=== PATIENT | female | born 1950 | race African-American/Black ===

== ENCOUNTER 2018-10-03 09:35 | Emergency (ER) | payer MEDICARE, OTHER ==
[~2018-10-03] VITALS: Ht 170.2 cm; Wt 63.6 kg
[~2018-10-03 09:35] MED LIST: ALBU8HFA IH; AUD NEB; DILT30TA38 PO; LEVE1000 PO; LISI-662 PO; MOME13HF IH; MONT10TA24 PO; OMEP20 PO; PRED5 PO; SENN-176 PO
[2018-10-03 10:39] LABS: BASOPHILS % (AUTO) 0.6 % (0.0-2.0); EOSINOPHILS % (AUTO) 0.6 % (1.0-6.0); HEMATOCRIT 44.3 % (36-46); LYMPHOCYTES # (AUTO) 3.4 K/uL (1.0-4.8); LYMPHOCYTES % (AUTO) 26.2 % (22.0-44.0); MEAN CORPUSCULAR HEMOGLOBIN 22.5 pg (26.0-34.0); MEAN CORPUSCULAR HGB CONC 31.7 G/dL (31.0-37.0); MEAN CORPUSCULAR VOLUME 71 fL (80-100); MONOCYTES # (AUTO) 0.9 K/uL (0.1-1.0); MONOCYTES % (AUTO) 6.9 % (2.0-9.0); NEUTROPHILS # (AUTO) 8.6 K/uL (1.8-7.7); NEUTROPHILS % (AUTO) 65.7 % (40.0-70.0); PLATELET COUNT (AUTO) 280 K/uL (150-450); RED BLOOD CELL COUNT(AUTO) 6.23 MIL/uL (4.00-5.20); RED CELL DISTRIBUTION WIDTH 15.5 % (11.5-14.5)
[2018-10-03 10:50] LABS: ANION GAP 16 mmol/L (8-16); CALCIUM, TOTAL 9.8 mg/dL (8.8-10.5); CARBON DIOXIDE 19 mmol/L (22-29); CHLORIDE 103 mmol/L (98-107); CREATININE 1.12 mg/dL (0.60-1.30); GLOMERULAR FILTR. RATE CALC 59 mL/min (>60); GLUCOSE,RANDOM 113 mg/dL (70-110); SODIUM SERUM 138 mmol/L (136-145); UREA NITROGEN, BLOOD 17 mg/dL (7-18)
[2018-10-03 10:55] LABS: ALANINE AMINOTRANSFERASE 16 U/L (12-78); ALBUMIN 3.6 g/dL (3.4-5.0); ALKALINE PHOSPHATASE 98 U/L (46-116); ASPARTATE AMINOTRANSFERASE 15 U/L (15-37); BILIRUBIN,TOTAL 0.3 mg/dL (0.1-1.0); TOTAL PROTEIN, SERUM 7.7 g/dL (6.4-8.2)
[2018-10-03] MEDS ORDERED: DIAZEPAM 2 MG TABLET PO ONE (12:15)
[2018-10-03] MEDS ORDERED: SODIUM CHLORIDE 0.9% 1,000 ML IV ONE (12:15)
[2018-10-03] MEDS ORDERED: LevETIRAcetam 1,000 MG in DEXTROSE 5%-WATER 100 ML IV ONE (12:15)
[2018-10-03 14:00] VITALS: BP 130/88
== END 2018-10-03 14:45 | disposition home or self-care (01) ==
LOC: EMS 09:35
DX: G40.909 Epilepsy, unspecified, not intractable, without status epilepticus (principal); R25.2 Cramp and spasm; I10 Essential (primary) hypertension; F17.210 Nicotine dependence, cigarettes, uncomplicated; J44.9 Chronic obstructive pulmonary disease, unspecified; F32.9 Major depressive disorder, single episode, unspecified; Z85.118 Personal history of other malignant neoplasm of bronchus and lung; Z88.1 Allergy status to other antibiotic agents; Z79.899 Other long term (current) drug therapy
CPT/HCPCS: 36415; 80053; 85025; 96365; 99283; 99406; G0480; J0712; J7030; J7060

== ENCOUNTER 2019-07-02 11:47 | Emergency (ER) | payer MEDICARE, OTHER ==
[~2019-07-02] VITALS: Ht 157.5 cm; Wt 68.2 kg
[~2019-07-02 11:47] MED LIST changes: -AUD NEB; -MONT10TA24 PO; +MONT10TA26 PO; -PRED5 PO
[2019-07-02 11:49] VITALS: BP 164/86
== END 2019-07-02 12:40 | disposition home or self-care (01) ==
LOC: EMS 11:54
DX: I10 Essential (primary) hypertension (principal); J44.9 Chronic obstructive pulmonary disease, unspecified; K21.9 Gastro-esophageal reflux disease without esophagitis; F32.9 Major depressive disorder, single episode, unspecified; F17.210 Nicotine dependence, cigarettes, uncomplicated; Z85.118 Personal history of other malignant neoplasm of bronchus and lung; Z79.899 Other long term (current) drug therapy; Z88.1 Allergy status to other antibiotic agents; Z88.8 Allergy status to other drugs, medicaments and biological substances
CPT/HCPCS: 93005

== ENCOUNTER 2020-03-13 15:32 | Emergency (ER) | payer MEDICARE, OTHER ==
[~2020-03-13] VITALS: Ht 170.2 cm; Wt 67.7 kg
[~2020-03-13 15:32] MED LIST changes: -SENN-176 PO; +SENN-277 PO
[2020-03-13 15:34] VITALS: BP 145/87
[2020-03-13] MEDS ORDERED: MULT-1259 PO (15:51)
[2020-03-13] MEDS ORDERED: DIPH25 PO (15:51)
[2020-03-13 17:30] LABS: APPEARANCE,URINE CLOUDY (CLEAR); BILIRUBIN,URINE NEGATIVE (NEGATIVE); GLUCOSE, URINE (UA) NEGATIVE (NEGATIVE); KETONES,URINE NEGATIVE (NEGATIVE); LEUKOCYTE ESTERASE ,URINE SMALL (NEGATIVE); NITRATE,URINE NEGATIVE (NEGATIVE); OCCULT BLOOD,URINE NEGATIVE (NEGATIVE); PH,URINE 6.5 (5.0-8.0); PROTEIN,URINE NEGATIVE (NEGATIVE); UROBILINOGEN,URINE 0.2 mg/dL (<=1.0)
[2020-03-13 17:39] LABS: BACTERIA,URINE None Seen /HPF (None Seen); RBC,URINE None Seen /HPF (0-2)
== END 2020-03-13 17:02 | disposition home or self-care (01) ==
LOC: EMS 15:33
DX: N39.0 Urinary tract infection, site not specified (principal)

== ENCOUNTER 2020-11-18 14:51 | Emergency (ER) | payer MEDICARE, OTHER ==
[~2020-11-18] VITALS: Ht 170.2 cm; Wt 72.0 kg
[~2020-11-18 14:51] MED LIST changes: +DIPH25 PO; -LISI-662 PO; +LISI-894 PO; -MONT10TA26 PO; +MULT-1259 PO
[2020-11-18 15:53] LABS: BILIRUBIN,URINE NEGATIVE (NEGATIVE); GLUCOSE, URINE (UA) NEGATIVE (NEGATIVE); KETONES,URINE NEGATIVE (NEGATIVE); LEUKOCYTE ESTERASE ,URINE LARGE (NEGATIVE); NITRATE,URINE NEGATIVE (NEGATIVE); OCCULT BLOOD,URINE SMALL (NEGATIVE); PH,URINE 6.5 (5.0-8.0); PROTEIN,URINE NEGATIVE (NEGATIVE); UROBILINOGEN,URINE 0.2 mg/dL (<=1.0)
[2020-11-18 16:01] LABS: APPEARANCE,URINE HAZY (CLEAR)
[2020-11-18 16:04] LABS: WBC,URINE 26-50 /HPF (0-5)
[2020-11-18 16:05] LABS: BACTERIA,URINE Moderate /HPF (None Seen); SQUAMOUS EPITHELIAL CELL,UR Rare /LPF (None Seen)
[2020-11-18 16:15] VITALS: BP 139/89
== END 2020-11-18 16:35 | disposition home or self-care (01) ==
LOC: EMS 14:57
DX: N39.0 Urinary tract infection, site not specified (principal); J44.9 Chronic obstructive pulmonary disease, unspecified; F32.9 Major depressive disorder, single episode, unspecified; K21.9 Gastro-esophageal reflux disease without esophagitis; I10 Essential (primary) hypertension; F17.210 Nicotine dependence, cigarettes, uncomplicated; Z88.1 Allergy status to other antibiotic agents
CPT/HCPCS: 81001; 87077; 87086; 87186; 99283

== ENCOUNTER 2020-12-25 05:47 | Emergency (ER) | payer MEDICARE, OTHER ==
[~2020-12-25] VITALS: Ht 167.6 cm; Wt 72.7 kg
[2020-12-25 06:40] LABS: BASOPHILS % (AUTO) 0.2 % (0.0-2.0); EOSINOPHILS % (AUTO) 1.1 % (1.0-6.0); HEMATOCRIT 39.7 % (36-46); HEMOGLOBIN 12.7 g/dL (12.0-16.0); LYMPHOCYTES # (AUTO) 2.4 K/uL (1.0-4.8); LYMPHOCYTES % (AUTO) 26.8 % (22.0-44.0); MEAN CORPUSCULAR HEMOGLOBIN 22.9 pg (26.0-34.0); MEAN CORPUSCULAR VOLUME 72 fL (80-100); MONOCYTES # (AUTO) 0.6 K/uL (0.1-1.0); MONOCYTES % (AUTO) 7.2 % (2.0-9.0); NEUTROPHILS # (AUTO) 5.8 K/uL (1.8-7.7); NEUTROPHILS % (AUTO) 64.7 % (40.0-70.0); PLATELET COUNT (AUTO) 150 K/uL (150-450); RED BLOOD CELL COUNT(AUTO) 5.54 MIL/uL (4.00-5.20); RED CELL DISTRIBUTION WIDTH 16.1 % (11.5-14.5)
[2020-12-25 06:45] LABS: ANION GAP 10 mmol/L (8-16); CALCIUM, TOTAL 9.4 mg/dL (8.8-10.5); CARBON DIOXIDE 24 mmol/L (22-29); CHLORIDE 105 mmol/L (98-107); CREATININE 0.91 mg/dL (0.60-1.30); GLOMERULAR FILTR. RATE CALC > 60 mL/min (>60); GLUCOSE,RANDOM 104 mg/dL (70-110); POTASSIUM 3.8 mmol/L (3.5-5.1); SODIUM SERUM 139 mmol/L (136-145); UREA NITROGEN, BLOOD 7 mg/dL (7-18)
[2020-12-25 06:50] LABS: COVID AG,FIA SOURCE NASOPHARYNGEAL
[2020-12-25 06:51] LABS: ALANINE AMINOTRANSFERASE 28 U/L (12-78); ALBUMIN 3.6 g/dL (3.4-5.0); ALKALINE PHOSPHATASE 116 U/L (46-116); ASPARTATE AMINOTRANSFERASE 17 U/L (15-37); BILIRUBIN,TOTAL 0.3 mg/dL (0.1-1.0); TOTAL PROTEIN, SERUM 7.4 g/dL (6.4-8.2)
[2020-12-25] MEDS ORDERED: PSEU-220 PO (07:03)
[2020-12-25] MEDS ORDERED: FOLI-74 PO (07:03)
[2020-12-25] MEDS ORDERED: LISI-893 PO (07:03)
[2020-12-25] MEDS ORDERED: MONT-35 PO (07:03)
[2020-12-25] MEDS ORDERED: FAMO20 PO (07:03)
[2020-12-25] MEDS ORDERED: OSIM80TA PO (07:05)
[2020-12-25] MEDS ORDERED: AMOX1TAB16 PO (07:05)
[2020-12-25] MEDS ORDERED: LevETIRAcetam 500 MG TABLET PO ONE (08:30)
[2020-12-25] MEDS ORDERED: ACETAMINOPHEN 500 MG TABLET PO ONE (09:00)
[2020-12-25 09:02] VITALS: BP 140/68
== END 2020-12-25 10:05 | disposition home or self-care (01) ==
LOC: EMS 05:49
DX: G40.909 Epilepsy, unspecified, not intractable, without status epilepticus (principal); C34.91 Malignant neoplasm of unspecified part of right bronchus or lung; J44.9 Chronic obstructive pulmonary disease, unspecified; F32.9 Major depressive disorder, single episode, unspecified; K21.9 Gastro-esophageal reflux disease without esophagitis; I10 Essential (primary) hypertension; F17.210 Nicotine dependence, cigarettes, uncomplicated; Z20.822 Contact with and (suspected) exposure to COVID-19; Z88.5 Allergy status to narcotic agent; Z79.899 Other long term (current) drug therapy
CPT/HCPCS: 71045; 80053; 85025; 99284; 99285; 36415-L1; 36415-TC

== ENCOUNTER 2021-03-01 16:33 | Emergency (ER) | payer MEDICARE, OTHER ==
[~2021-03-01] VITALS: Ht 170.2 cm; Wt 63.6 kg
[~2021-03-01 16:33] MED LIST changes: +AMOX1TAB16 PO; +FAMO20 PO; +FOLI-74 PO; +LISI-893 PO; -LISI-894 PO; +MONT-35 PO; +OSIM80TA PO; +PSEU-220 PO
[2021-03-01 17:37] LABS: APPEARANCE,URINE RPT (CLEAR); BILIRUBIN,URINE NEGATIVE (NEGATIVE); GLUCOSE, URINE (UA) NEGATIVE (NEGATIVE); KETONES,URINE NEGATIVE (NEGATIVE); LEUKOCYTE ESTERASE ,URINE LARGE (NEGATIVE); NITRATE,URINE POSITIVE (NEGATIVE); OCCULT BLOOD,URINE TRACE (NEGATIVE); PROTEIN,URINE NEGATIVE (NEGATIVE); UROBILINOGEN,URINE 0.2 mg/dL (<=1.0)
[2021-03-01 17:47] LABS: SQUAMOUS EPITHELIAL CELL,UR Rare /LPF (None Seen)
[2021-03-01 17:49] LABS: BACTERIA,URINE Moderate /HPF (None Seen); RBC,URINE 0-2 /HPF (0-2)
[2021-03-01 17:50] LABS: WBC,URINE 51-100 /HPF (0-5)
[2021-03-01 18:25] VITALS: BP 123/87
== END 2021-03-01 18:26 | disposition home or self-care (01) ==
LOC: EMS 16:38
DX: N39.0 Urinary tract infection, site not specified (principal); I10 Essential (primary) hypertension; J44.9 Chronic obstructive pulmonary disease, unspecified; K21.9 Gastro-esophageal reflux disease without esophagitis; F32.9 Major depressive disorder, single episode, unspecified; F17.210 Nicotine dependence, cigarettes, uncomplicated; Z88.1 Allergy status to other antibiotic agents; Z79.899 Other long term (current) drug therapy
CPT/HCPCS: 81001; 87077; 87086; 87186; 99283

== ENCOUNTER 2021-03-18 16:16 | Emergency (ER) | payer MEDICARE, OTHER ==
[~2021-03-18] VITALS: Ht 170.2 cm; Wt 70.0 kg
[2021-03-18 17:04] VITALS: BP 136/76
[2021-03-18 18:06] LABS: BASOPHILS % (AUTO) 0.4 % (0.0-2.0); EOSINOPHILS % (AUTO) 0.7 % (1.0-6.0); HEMATOCRIT 41.3 % (36-46); HEMOGLOBIN 13.1 g/dL (12.0-16.0); LYMPHOCYTES % (AUTO) 25.8 % (22.0-44.0); MEAN CORPUSCULAR HEMOGLOBIN 22.7 pg (26.0-34.0); MEAN CORPUSCULAR HGB CONC 31.8 G/dL (31.0-37.0); MEAN CORPUSCULAR VOLUME 71 fL (80-100); MONOCYTES # (AUTO) 0.5 K/uL (0.1-1.0); MONOCYTES % (AUTO) 6.2 % (2.0-9.0); NEUTROPHILS # (AUTO) 5.1 K/uL (1.8-7.7); NEUTROPHILS % (AUTO) 66.9 % (40.0-70.0); PLATELET COUNT (AUTO) 151 K/uL (150-450); RED CELL DISTRIBUTION WIDTH 15.2 % (11.5-14.5)
[2021-03-18 18:24] LABS: ANION GAP 8 mmol/L (8-16); CALCIUM, TOTAL 9.3 mg/dL (8.8-10.5); CARBON DIOXIDE 27 mmol/L (22-29); CHLORIDE 102 mmol/L (98-107); CREATININE 0.92 mg/dL (0.60-1.30); GLOMERULAR FILTR. RATE CALC > 60 mL/min (>60); GLUCOSE,RANDOM 99 mg/dL (70-110); POTASSIUM 3.8 mmol/L (3.5-5.1); SODIUM SERUM 137 mmol/L (136-145); UREA NITROGEN, BLOOD 12 mg/dL (7-18)
[2021-03-18 18:30] LABS: ALANINE AMINOTRANSFERASE 51 U/L (12-78); ALKALINE PHOSPHATASE 123 U/L (46-116); ASPARTATE AMINOTRANSFERASE 21 U/L (15-37); BILIRUBIN,TOTAL 0.3 mg/dL (0.1-1.0)
[2021-03-18 19:45] LABS: APPEARANCE,URINE CLOUDY (CLEAR); BILIRUBIN,URINE NEGATIVE (NEGATIVE); GLUCOSE, URINE (UA) NEGATIVE (NEGATIVE); KETONES,URINE NEGATIVE (NEGATIVE); LEUKOCYTE ESTERASE ,URINE LARGE (NEGATIVE); NITRATE,URINE POSITIVE (NEGATIVE); OCCULT BLOOD,URINE SMALL (NEGATIVE); PROTEIN,URINE NEGATIVE (NEGATIVE); UROBILINOGEN,URINE 0.2 mg/dL (<=1.0)
[2021-03-18 20:09] LABS: SQUAMOUS EPITHELIAL CELL,UR Few /LPF (None Seen)
[2021-03-18 20:10] LABS: BACTERIA,URINE Many /HPF (None Seen); WBC,URINE 51-100 /HPF (0-5)
[2021-03-18 20:11] LABS: RBC,URINE 0-2 /HPF (0-2)
== END 2021-03-18 21:14 | disposition home or self-care (01) ==
LOC: EMS 16:18
DX: N89.8 Other specified noninflammatory disorders of vagina (principal); R30.0 Dysuria; F17.210 Nicotine dependence, cigarettes, uncomplicated; F32.9 Major depressive disorder, single episode, unspecified; I10 Essential (primary) hypertension; Z88.1 Allergy status to other antibiotic agents; Z79.899 Other long term (current) drug therapy
CPT/HCPCS: 80053; 81001; 85025; 87077; 87086; 87186; 99283

== ENCOUNTER 2021-03-26 12:48 | Emergency (ER) | payer MEDICARE, OTHER ==
[~2021-03-26] VITALS: Ht 170.2 cm; Wt 63.6 kg
[2021-03-26 15:31] LABS: APPEARANCE,URINE TURBID (CLEAR); BILIRUBIN,URINE NEGATIVE (NEGATIVE); GLUCOSE, URINE (UA) NEGATIVE (NEGATIVE); KETONES,URINE NEGATIVE (NEGATIVE); LEUKOCYTE ESTERASE ,URINE LARGE (NEGATIVE); OCCULT BLOOD,URINE SMALL (NEGATIVE); PROTEIN,URINE NEGATIVE (NEGATIVE); UROBILINOGEN,URINE 0.2 mg/dL (<=1.0)
[2021-03-26 15:35] LABS: BACTERIA,URINE Many /HPF (None Seen); NITRATE,URINE POSITIVE (NEGATIVE); SQUAMOUS EPITHELIAL CELL,UR Few /LPF (None Seen); WBC,URINE >100 /HPF (0-5)
[2021-03-26 15:39] VITALS: BP 129/67
== END 2021-03-26 15:42 | disposition home or self-care (01) ==
LOC: EMS 12:48
DX: N12 Tubulo-interstitial nephritis, not specified as acute or chronic (principal); J44.9 Chronic obstructive pulmonary disease, unspecified; F32.9 Major depressive disorder, single episode, unspecified; K21.9 Gastro-esophageal reflux disease without esophagitis; I10 Essential (primary) hypertension; F17.210 Nicotine dependence, cigarettes, uncomplicated; Z88.1 Allergy status to other antibiotic agents; Z79.899 Other long term (current) drug therapy
CPT/HCPCS: 81001; 87077; 87086; 99283

== ENCOUNTER 2022-10-20 07:07 | Day surgery (SDC) | payer MEDICARE, OTHER ==
[~2022-10-20 07:07] MED LIST changes: +ALBU18HF12 IH; -ALBU8HFA IH; -AMOX1TAB16 PO; -DILT30TA38 PO; +DIPH-1243 PO; -DIPH25 PO; -FOLI-74 PO; -MOME13HF IH; +MOME13HF11 IH; -MULT-1259 PO; -OMEP20 PO; -PSEU-220 PO; -SENN-277 PO; +SODIUM CHLORIDE 0.9% 1,000 ML IV ONE
[2022-10-20] MEDS ORDERED: SODIUM CHLORIDE 0.9% 1,000 ML ONE (07:16)
[2022-10-20] MEDS ORDERED: FAMO20 PO (07:31)
[2022-10-20] MEDS ORDERED: FentaNYL CITRATE PF 100 MCG/2 ML VIAL ONE (08:20)
[2022-10-20] MEDS ORDERED: MIDAZOLAM HCL 2 MG/2 ML VIAL ONE (08:21)
[2022-10-20] MEDS ORDERED: MethylPREDNISolone SOD SUCC 125 MG/2 ML VIAL ONE ×2 (09:19→09:50)
[2022-10-20] MEDS ORDERED: MethylPREDNISolone SOD SUCC 125 MG/2 ML VIAL IVP ONE (10:00)
[2022-10-20] MEDS ORDERED: ALBUTEROL SULFATE 2.5 MG/0.5 ML NEB SOLUTION NEB ONE (12:00)
[2022-10-20] MEDS ORDERED: LIDOCAINE 4% 50 ML SOLUTION TP ONE (12:00)
[2022-10-20] MEDS ORDERED: LIDOCAINE 2% 11 ML JELLY TP ONE (12:00)
[2022-10-20] MEDS ORDERED: BENZOCAINE 20% 50 MCG/SPRAY 57 GM TP ONE (12:00)
== END 2022-10-20 11:40 | disposition home or self-care (01) ==
LOC: SURGERY 07:07
PROVIDERS: ATTEND Internal Medicine Critical Care Medicine
DX: J38.4 Edema of larynx (principal); B37.0 Candidal stomatitis; J44.9 Chronic obstructive pulmonary disease, unspecified; Z98.890 Other specified postprocedural states; Z88.1 Allergy status to other antibiotic agents
CPT/HCPCS: 31623; 88112; 87206; 87101; 87220; 87070; 31624; 94640; 71045; 87015; J3010; J2250; J2930; Q9967; J7030; J7613; Z7610

== ENCOUNTER 2023-04-27 15:30 | Emergency (ER) | payer MEDICARE, OTHER ==
[~2023-04-27] VITALS: Ht 170.2 cm; Wt 59.1 kg
[~2023-04-27 15:30] MED LIST changes: -SODIUM CHLORIDE 0.9% 1,000 ML IV ONE
[2023-04-27] MEDS ORDERED: LISI-893 PO (15:37)
[2023-04-27] MEDS ORDERED: DILT60SR PO (15:37)
[2023-04-27] MEDS ORDERED: KETOROLAC TROMETHAMINE 30 MG/ML VIAL IM ONE (17:00)
[2023-04-27] MEDS ORDERED: DOXYCYCLINE HYCLATE 100 MG TABLET PO ONE (18:30)
[2023-04-27] MEDS ORDERED: DOXY-354 PO (19:37)
[2023-04-27] MEDS ORDERED: IBUP-1492 PO (19:37)
[2023-04-27] MEDS ORDERED: ACET-3385 PO (19:37)
[2023-04-27 19:57] VITALS: BP 135/89; PULSE 89; RESP 16; TEMP 97.3
== END 2023-04-27 19:00 | disposition home or self-care (01) ==
LOC: EMS 15:36
DX: L03.032 Cellulitis of left toe (principal); J44.9 Chronic obstructive pulmonary disease, unspecified; F32.A Depression, unspecified; I10 Essential (primary) hypertension; F17.210 Nicotine dependence, cigarettes, uncomplicated; Z98.890 Other specified postprocedural states; Z88.8 Allergy status to other drugs, medicaments and biological substances
CPT/HCPCS: 99283; 73660; 96372; J1885

== ENCOUNTER 2024-01-07 23:33 | Emergency (ER) | payer MEDICARE, OTHER ==
[~2024-01-07 23:33] MED LIST changes: +ACET-3385 PO; +DILT60SR PO; +DOXY-354 PO; +IBUP-1492 PO
[2024-01-08 01:16] LABS: APPEARANCE,URINE HAZY (CLEAR); BILIRUBIN,URINE NEGATIVE (NEGATIVE); COLOR,URINE YELLOW (YELLOW); GLUCOSE, URINE (UA) NEGATIVE (NEGATIVE); KETONES,URINE NEGATIVE (NEGATIVE); LEUKOCYTE ESTERASE ,URINE LARGE (NEGATIVE); NITRATE,URINE POSITIVE (NEGATIVE); OCCULT BLOOD,URINE SMALL (NEGATIVE); PH,URINE 5.5 (5.0-8.0); PROTEIN,URINE TRACE mg/dL (NEGATIVE); SPECIFIC GRAVITIY, URINE 1.022 (1.003-1.030); UROBILINOGEN,URINE <=1.0 mg/dL (<=1.0)
[2024-01-08 01:50] LABS: WBC,URINE 51-100 /HPF (0-5)
[2024-01-08 01:51] LABS: BACTERIA,URINE Many /HPF (None Seen); SQUAMOUS EPITHELIAL CELL,UR Few /LPF (None Seen)
[2024-01-08] MEDS ORDERED: CEPH-558 PO (01:57)
[2024-01-08] MEDS: CefTRIAXone SODIUM 1 GM/VIAL IM ONE (02:11)
[2024-01-08] MEDS: LIDOCAINE/PF 1% 2 ML VIAL IM ONE (02:11)
[2024-01-08] MEDS ORDERED: CefTRIAXone 1 GM/DEXTROSE 50 ML IV ONE (02:15)
[2024-01-08] MEDS ORDERED: CefTRIAXone SODIUM 1 GM/VIAL ONE (02:22)
[2024-01-08] MEDS ORDERED: LIDOCAINE/PF 1% 2 ML VIAL ONE (02:22)
[2024-01-08] MEDS ORDERED: LIDOCAINE/PF 1% 2 ML VIAL IM ONE (02:45)
[2024-01-08] MEDS ORDERED: CefTRIAXone SODIUM 1 GM/VIAL IM ONE (02:45)
== END 2024-01-08 02:42 | disposition home or self-care (01) ==
LOC: EMS 23:34
DX: N39.0 Urinary tract infection, site not specified (principal); R30.0 Dysuria; R35.0 Frequency of micturition; J44.9 Chronic obstructive pulmonary disease, unspecified; K21.9 Gastro-esophageal reflux disease without esophagitis; I10 Essential (primary) hypertension; F17.210 Nicotine dependence, cigarettes, uncomplicated; Z88.1 Allergy status to other antibiotic agents
CPT/HCPCS: 99283; 81001; 87086; 87186; J0696; J3490

== ENCOUNTER 2024-03-08 22:29 | Inpatient (IN) | payer MEDICARE, OTHER ==
[~2024-03-08] VITALS: Ht 170.2 cm; Wt 56.2 kg
[~2024-03-08 22:29] MED LIST changes: -ACET-3385 PO; +APIX5TAB PO; +BRIM5DRO9 OU; -DILT60SR PO; -DIPH-1243 PO; +DORZ1DRO12 OU; -DOXY-354 PO; -FAMO20 PO; -IBUP-1492 PO; -MOME13HF11 IH; -MONT-35 PO; +TRIP1TAB14 PO; +VERA120T21 PO; +[UNRECOGNIZED DRUG - CODE] PO
[2024-03-08 22:30] VITALS: PULSE 142; RESP 37; O2SAT 100
[2024-03-08] MEDS ORDERED: ALBUTEROL SULFATE 2.5 MG/0.5 ML 5 ML NEB SOLUTION NEB ONE (22:45)
[2024-03-08] MEDS ORDERED: 0.9% SODIUM CHLORIDE 10 ML SYRINGE IVP PRN (22:45)
[2024-03-08] MEDS ORDERED: IPRATROPIUM BROMIDE 0.5 MG/2.5 ML NEB SOLUTION NEB ONE (22:45)
[2024-03-08] MEDS: MethylPREDNISolone SOD SUCC 125 MG/2 ML VIAL IVP ONE (22:51)
[2024-03-08 22:53] LABS: ABG BASE EXCESS -6.3 mmol/L (-2.0-3.0); ABG HCO3 19.2 mmol/L (21.0-28.0); ABG METHEMOGLOBIN 0.1 % (0.0-1.5); ABG OXYGEN CONTENT 18.2 mL/dL (15.0-23.0); ABG OXYGEN SATURATION 98.6 % (94.0-98.0); ABG OXYHEMOGLOBIN 96.5 % (94.0-98.0); ABG PCO2 49 mmHg (32.0-45.0); ABG TOTAL HEMOGLOBIN 13.2 G/dL (12.0-16.0); SOURCE, BLOOD GAS ARTERIAL; TEMPERATURE, FAHRENHEIT, BG 98.1 FAHREN (96.0-98.6)
[2024-03-08 22:55] LABS: EOSINOPHILS % (AUTO) 1.4 % (1.0-6.0); HEMATOCRIT 41.7 % (36-46); LYMPHOCYTES # (AUTO) 2.2 K/uL (1.0-4.8); LYMPHOCYTES % (AUTO) 27.6 % (22.0-44.0); MEAN CORPUSCULAR HEMOGLOBIN 23.8 pg (26.0-34.0); MEAN CORPUSCULAR HGB CONC 31.2 G/dL (31.0-37.0); MEAN CORPUSCULAR VOLUME 76 fL (80-100); MONOCYTES # (AUTO) 0.8 K/uL (0.1-1.0); MONOCYTES % (AUTO) 10.4 % (2.0-9.0); NEUTROPHILS # (AUTO) 4.7 K/uL (1.8-7.7); NEUTROPHILS % (AUTO) 59.6 % (40.0-70.0); PLATELET COUNT (AUTO) 157 K/uL (150-450); RED BLOOD CELL COUNT(AUTO) 5.47 MIL/uL (4.00-5.20); RED CELL DISTRIBUTION WIDTH 16.9 % (11.5-14.5); WHITE BLOOD COUNT (AUTO) 7.9 K/uL (4.5-11.0)
[2024-03-08 23:00] LABS: ABG PH 7.247 (7.350-7.450); ALLEN TEST, BLOOD GAS Positive; O2 DEVICE,BLOOD GAS BIPAP (ROOM AIR); PO2, ARTERIAL BG 140.2 mmHg (83.0-108.0); SITE, BLOOD GAS RT RADIAL
[2024-03-08 23:01] LABS: INSPIRATORY TIME, BG 0.9 SEC; SPONTANEOUS VT, BG 460 ml
[2024-03-08] MEDS ORDERED: 0.9% SODIUM CHLORIDE 5 ML NEB SOLUTION NEB ONE (23:04)
[2024-03-08 23:05] VITALS: PULSE 142; RESP 37; O2SAT 100
[2024-03-08] MEDS: LEVALBUTEROL 1.25 MG/0.5 ML NEB SOLUTION NEB ONE (23:05)
[2024-03-08] MEDS: IPRATROPIUM BROMIDE 0.5 MG/2.5 ML NEB SOLUTION NEB ONE (23:05)
[2024-03-08 23:09] LABS: PROTHROMBIN TIME 10.8 SEC (9.4-11.6)
[2024-03-08 23:10] LABS: PLATELET MORPHOLOGY COMMENT LARGE PLTS PRESENT; RBC MORPHOLOGY COMMENT ABNORMAL RBC MORPH
[2024-03-08 23:24] LABS: ANION GAP 6 mmol/L (8-16); CALCIUM, TOTAL 8.9 mg/dL (8.8-10.5); CARBON DIOXIDE 28 mmol/L (22-29); CHLORIDE 96 mmol/L (98-107); CREATININE 0.92 mg/dL (0.60-1.30); GLOMERULAR FILTR. RATE CALC > 60 mL/min (>60); GLUCOSE,RANDOM 180 mg/dL (70-110); POTASSIUM 4.7 mmol/L (3.5-5.1); SODIUM SERUM 130 mmol/L (136-145); UREA NITROGEN, BLOOD 4 mg/dL (7-18)
[2024-03-08 23:42] LABS: INFLUENZA TYPE A NEGATIVE FOR TYPE A (NEGATIVE); INFLUENZA TYPE B NEGATIVE FOR TYPE B (NEGATIVE)
[2024-03-08] MEDS ORDERED: PIPERACILLIN/TAZO 3.375 GM/D5W 50 ML IV ONE (23:45)
[2024-03-08 23:47] LABS: B-TYPE NATRIURETIC PEPTIDE 74 pg/mL (0-100)
[2024-03-08 23:49] LABS: ALANINE AMINOTRANSFERASE 15 U/L (12-78); ALKALINE PHOSPHATASE 105 U/L (46-116); ASPARTATE AMINOTRANSFERASE 20 U/L (15-37); BILIRUBIN,TOTAL 0.5 mg/dL (0.1-1.0); CREATINE KINASE, TOTAL ONLY 104 U/L (26-192); TOTAL PROTEIN, SERUM 6.9 g/dL (6.4-8.2)
[2024-03-08 23:53] LABS: TROPONIN I-HIGH SENSITIVITY 69 ng/L (<51)
[2024-03-09] VITALS (13 sets, daily range): BP systolic 114–146; BP diastolic 74–91; PULSE 99–141; RESP 19–39; TEMP 97.6–98.7; O2SAT 93–100
[2024-03-09] MEDS ORDERED: ONDANSETRON HCL 4 MG/2 ML VIAL IVP PRN (00:15)
[2024-03-09] MEDS: *CLINICAL-MEROPENEM DOSING CLINICAL ONE (00:26)
[2024-03-09] MEDS: HYDROmorphone HCL 2 MG/ML SYRINGE IVP ONE (00:28)
[2024-03-09] MEDS: SODIUM CHLORIDE 0.9% 250 ML IV ONE (00:29)
[2024-03-09] MEDS ORDERED: DEXTROSE 50%-WATER 25 GM/50 ML SYRINGE IVP PRN (00:30)
[2024-03-09] MEDS ORDERED: [UNRECOGNIZED DRUG - OTHER] PO PRN (00:30)
[2024-03-09] MEDS: VANCOMYCIN 1.25 GM/WATER(PEG) 250 ML IV ONE (01:10)
[2024-03-09] MEDS: MEROPENEM 1 GM in SODIUM CHLORIDE 0.9% 100 ML IV SCH (01:10)
[2024-03-09] MEDS: ONDANSETRON HCL 4 MG/2 ML VIAL IVP ONE (01:16)
[2024-03-09] MEDS ORDERED: SODIUM CHLORIDE 0.9% 100 ML ONE (01:37)
[2024-03-09] MEDS ORDERED: IOHEXOL 350 MG/ML 100 ML VIAL ONE (01:38)
[2024-03-09 01:56] LABS: TROPONIN I-HIGH SENSITIVITY 609 ng/L (<51)
[2024-03-09] MEDS: ASPIRIN 81 MG CHEWABLE TABLET PO ONE (02:29)
[2024-03-09] MEDS: ALBUTEROL SULFATE 2.5 MG/0.5 ML NEB SOLUTION NEB PRN (03:26)
[2024-03-09] MEDS: IPRATROPIUM BROMIDE 0.5 MG/2.5 ML NEB SOLUTION NEB PRN (03:27)
[2024-03-09 07:10] LABS: GLUCOMETER DEV NAME(LOC) 5N.2C; GLUCOSE,POINT OF CARE 168 MG/DL (70-110)
[2024-03-09 07:46] LABS: TROPONIN I-HIGH SENSITIVITY 577 ng/L (<51)
[2024-03-09] MEDS ORDERED: HEPARIN SODIUM,PORCINE 5,000 UNITS/ML VIAL SQ SCH (08:00)
[2024-03-09] MEDS ORDERED: [UNRECOGNIZED DRUG - OTHER] PO SCH (09:00)
[2024-03-09] MEDS: APIXABAN 5 MG TABLET PO SCH (09:03)
[2024-03-09] MEDS: LevETIRAcetam 500 MG TABLET PO SCH (09:03)
[2024-03-09] MEDS: VANCOMYCIN 750 MG/WATER(PEG) 150 ML IV SCH (09:04)
[2024-03-09] MEDS: BRIMONIDINE TARTRATE 0.2% 5 ML OPHTHALMIC SOLUTION OU SCH (09:04)
[2024-03-09] MEDS: DORZOLAMIDE/TIMOLOL 2-0.5% [22.3-6.8MG/ML] 10 ML OPHTHALMIC SOLUTION OU SCH (09:04)
[2024-03-09] MEDS: MethylPREDNISolone SOD SUCC 125 MG/2 ML VIAL IVP SCH (09:04)
[2024-03-09] MEDS: ACETAMINOPHEN 325 MG TABLET PO PRN (09:32)
[2024-03-09 10:23] LABS: APPEARANCE,URINE CLEAR (CLEAR); BILIRUBIN,URINE NEGATIVE (NEGATIVE); COLOR,URINE LIGHT YELLOW (YELLOW); GLUCOSE, URINE (UA) NEGATIVE (NEGATIVE); LEUKOCYTE ESTERASE ,URINE LARGE (NEGATIVE); NITRATE,URINE NEGATIVE (NEGATIVE); OCCULT BLOOD,URINE TRACE (NEGATIVE); PH,URINE 5.5 (5.0-8.0); PROTEIN,URINE NEGATIVE (NEGATIVE); SPECIFIC GRAVITIY, URINE 1.025 (1.003-1.030); UROBILINOGEN,URINE <=1.0 mg/dL (<=1.0)
[2024-03-09 10:48] LABS: RBC,URINE 0-2 /HPF (0-2)
[2024-03-09 10:49] LABS: BACTERIA,URINE Moderate /HPF (None Seen); SQUAMOUS EPITHELIAL CELL,UR Moderate /LPF (None Seen)
[2024-03-09 11:07] LABS: INFLUENZA A-RTPCR,COMBO NEGATIVE (NEGATIVE); INFLUENZA B-RTPCR,COMBO NEGATIVE (NEGATIVE); RESPIRATORY SYNCYTIAL VRS-PCR NEGATIVE (NEGATIVE); SARS COVID19 RTPCR, COMBO NEGATIVE (NEGATIVE)
[2024-03-09] MEDS ORDERED: DORZ10DR10 OU (11:15)
[2024-03-09] MEDS ORDERED: DIPH50CA35 PO (11:15)
[2024-03-09] MEDS ORDERED: FAMO20 PO (11:15)
[2024-03-09] MEDS ORDERED: MONT-40 PO (11:15)
[2024-03-09] MEDS ORDERED: BUDE10.7 IH (11:15)
[2024-03-09] MEDS ORDERED: OXYB5TAB20 PO (11:15)
[2024-03-09] MEDS: MAGNESIUM HYDROXIDE SUSPENSION 30 ML UDCUP PO ONE (11:44)
[2024-03-09] MEDS: LIDOCAINE 5% TRANSDERMAL PATCH TD ONE (12:22)
[2024-03-09] MEDS: ACETAMINOPHEN 500 MG TABLET PO PRN (16:24)
[2024-03-09] MEDS: INSULIN LISPRO 100 UNITS/ML SQ PRN (17:35)
[2024-03-09 21:16] LABS: GLUCOMETER DEV NAME(LOC) 5S.1C; GLUCOSE,POINT OF CARE 169 MG/DL (70-110)
[2024-03-09] MEDS: CHLORHEXIDINE GLUCONATE 2% TOWELETTE [2'S/6'S] TP SCH (22:38)
[2024-03-09] MEDS: MAGNESIUM HYDROXIDE SUSPENSION 30 ML UDCUP PO PRN (23:33)
[2024-03-10] VITALS (20 sets, daily range): BP systolic 125–151; BP diastolic 73–93; PULSE 76–119; RESP 16–22; TEMP 97.7–98.3; O2SAT 92–100
[2024-03-10 05:50] LABS: GLUCOMETER DEV NAME(LOC) 5N.2C; GLUCOSE,POINT OF CARE 152 MG/DL (70-110)
[2024-03-10 05:50] LABS: GLUCOMETER DEV NAME(LOC) 5N.2C; GLUCOSE,POINT OF CARE 148 MG/DL (70-110)
[2024-03-10 06:48] LABS: BASOPHILS % (AUTO) 0.2 % (0.0-2.0); EOSINOPHILS % (AUTO) 0.1 % (1.0-6.0); HEMATOCRIT 40.6 % (36-46); HEMOGLOBIN 12.9 g/dL (12.0-16.0); LYMPHOCYTES # (AUTO) 1.1 K/uL (1.0-4.8); LYMPHOCYTES % (AUTO) 10.6 % (22.0-44.0); MEAN CORPUSCULAR HGB CONC 31.8 G/dL (31.0-37.0); MEAN CORPUSCULAR VOLUME 75 fL (80-100); MONOCYTES # (AUTO) 0.8 K/uL (0.1-1.0); MONOCYTES % (AUTO) 7.6 % (2.0-9.0); NEUTROPHILS # (AUTO) 8.6 K/uL (1.8-7.7); NEUTROPHILS % (AUTO) 81.5 % (40.0-70.0); PLATELET COUNT (AUTO) 150 K/uL (150-450); RED BLOOD CELL COUNT(AUTO) 5.39 MIL/uL (4.00-5.20); RED CELL DISTRIBUTION WIDTH 16.3 % (11.5-14.5); WHITE BLOOD COUNT (AUTO) 10.5 K/uL (4.5-11.0)
[2024-03-10 06:57] LABS: RBC MORPHOLOGY COMMENT ABNORMAL RBC MORPH
[2024-03-10 07:10] LABS: ANION GAP 7 mmol/L (8-16); CALCIUM, TOTAL 8.9 mg/dL (8.8-10.5); CARBON DIOXIDE 28 mmol/L (22-29); CHLORIDE 98 mmol/L (98-107); CREATININE 0.71 mg/dL (0.60-1.30); GLOMERULAR FILTR. RATE CALC > 60 mL/min (>60); GLUCOSE,RANDOM 128 mg/dL (70-110); POTASSIUM 4.2 mmol/L (3.5-5.1); SODIUM SERUM 133 mmol/L (136-145); UREA NITROGEN, BLOOD 7 mg/dL (7-18); VANCOMYCIN,RANDOM 22.5 mcg/mL (25.0-50.0)
[2024-03-10 07:44] LABS: TROPONIN I-HIGH SENSITIVITY 586 ng/L (<51)
[2024-03-10 09:05] LABS: GLUCOMETER DEV NAME(LOC) 5S.1C; GLUCOSE,POINT OF CARE 129 MG/DL (70-110)
[2024-03-10] MEDS: DOCUSATE SODIUM 100 MG CAPSULE PO SCH (09:39)
[2024-03-10] MEDS: OSIMERTINIB 80 MG PO SCH (10:24)
[2024-03-10] MEDS: PROMETHAZINE HCL/DEXTROMETH 6.25-15MG/5ML SOLUTION ORAL.SYG PO PRN (17:25)
[2024-03-10] MEDS: CARVEDILOL 3.125 MG TABLET PO SCH (21:56)
[2024-03-10 22:23] LABS: GLUCOMETER DEV NAME(LOC) 5N.2C; GLUCOSE,POINT OF CARE 147 MG/DL (70-110)
[2024-03-10 22:23] LABS: GLUCOMETER DEV NAME(LOC) 5S.1C; GLUCOSE,POINT OF CARE 159 MG/DL (70-110)
[2024-03-11] VITALS (14 sets, daily range): BP systolic 127–162; BP diastolic 79–99; PULSE 99–115; RESP 17–20; TEMP 98–98.6; O2SAT 94–99
[2024-03-11 00:16] LABS: GLUCOMETER DEV NAME(LOC) 5S.1C; GLUCOSE,POINT OF CARE 170 MG/DL (70-110)
[2024-03-11] MEDS ORDERED: 0.9% SODIUM CHLORIDE 5 ML NEB SOLUTION NEB ONE (03:13)
[2024-03-11 06:06] LABS: GLUCOMETER DEV NAME(LOC) 5N.2C; GLUCOSE,POINT OF CARE 100 MG/DL (70-110)
[2024-03-11 07:06] LABS: ANION GAP 7 mmol/L (8-16); CALCIUM, TOTAL 8.9 mg/dL (8.8-10.5); CARBON DIOXIDE 29 mmol/L (22-29); CHLORIDE 99 mmol/L (98-107); CREATININE 0.91 mg/dL (0.60-1.30); GLOMERULAR FILTR. RATE CALC > 60 mL/min (>60); GLUCOSE,RANDOM 102 mg/dL (70-110); POTASSIUM 4.1 mmol/L (3.5-5.1); SODIUM SERUM 135 mmol/L (136-145); UREA NITROGEN, BLOOD 7 mg/dL (7-18)
[2024-03-11] MEDS: LOSARTAN POTASSIUM 25 MG TABLET PO SCH (08:50)
[2024-03-11] MEDS: EMPAGLIFLOZIN 10 MG TABLET PO SCH (08:53)
[2024-03-11] MEDS: VANCOMYCIN 1.25 GM/WATER(PEG) 250 ML IV SCH (08:59)
[2024-03-11 09:26] LABS: TROPONIN I-HIGH SENSITIVITY 310 ng/L (<51)
[2024-03-11] MEDS: LORazepam 0.5 MG TABLET PO ONE (12:33)
[2024-03-11 12:53] LABS: ABG A-A DIFF O2 142.4 mmHg (10-20.0); ABG BASE EXCESS 1.9 mmol/L (-2.0-3.0); ABG CARBOXYHEMOGLOBIN 0.8 % (0.5-1.5); ABG HCO3 25.9 mmol/L (21.0-28.0); ABG METHEMOGLOBIN 0.1 % (0.0-1.5); ABG OXYGEN CONTENT 19.4 mL/dL (15.0-23.0); ABG OXYGEN SATURATION 97.1 % (94.0-98.0); ABG OXYHEMOGLOBIN 96.2 % (94.0-98.0); ABG PCO2 43 mmHg (32.0-45.0); ABG PH 7.406 (7.350-7.450); ABG TOTAL HEMOGLOBIN 14.3 G/dL (12.0-16.0); ALLEN TEST, BLOOD GAS Positive; O2 DEVICE,BLOOD GAS CANNULA (ROOM AIR); PO2, ARTERIAL BG 93.3 mmHg (83.0-108.0); SITE, BLOOD GAS RT RADIAL; SOURCE, BLOOD GAS ARTERIAL
[2024-03-11 17:20] LABS: GLUCOMETER DEV NAME(LOC) 5S.1C; GLUCOSE,POINT OF CARE 170 MG/DL (70-110)
[2024-03-11 17:20] LABS: GLUCOMETER DEV NAME(LOC) 5N.2C; GLUCOSE,POINT OF CARE 116 MG/DL (70-110)
[2024-03-11] MEDS: FUROSEMIDE 40 MG/4 ML VIAL IVP SCH (20:41)
[2024-03-12] VITALS (12 sets, daily range): BP systolic 122–134; BP diastolic 52–94; PULSE 99–116; RESP 18–20; TEMP 97.8–98.5; O2SAT 90–99
[2024-03-12 06:40] LABS: GLUCOMETER DEV NAME(LOC) 5N.2C; GLUCOSE,POINT OF CARE 157 MG/DL (70-110)
[2024-03-12 06:55] LABS: GLUCOMETER DEV NAME(LOC) 5N.2C; GLUCOSE,POINT OF CARE 121 MG/DL (70-110)
[2024-03-12 07:18] LABS: ANION GAP 6 mmol/L (8-16); CALCIUM, TOTAL 8.8 mg/dL (8.8-10.5); CARBON DIOXIDE 31 mmol/L (22-29); CHLORIDE 97 mmol/L (98-107); CREATININE 0.76 mg/dL (0.60-1.30); GLOMERULAR FILTR. RATE CALC > 60 mL/min (>60); GLUCOSE,RANDOM 97 mg/dL (70-110); POTASSIUM 3.6 mmol/L (3.5-5.1); SODIUM SERUM 134 mmol/L (136-145); UREA NITROGEN, BLOOD 8 mg/dL (7-18)
[2024-03-12 12:10] LABS: GLUCOMETER DEV NAME(LOC) 5N.2C; GLUCOSE,POINT OF CARE 112 MG/DL (70-110)
[2024-03-12 17:55] LABS: GLUCOMETER DEV NAME(LOC) 5N.1D; GLUCOSE,POINT OF CARE 170 MG/DL (70-110)
[2024-03-13] VITALS (17 sets, daily range): BP systolic 111–127; BP diastolic 58–84; PULSE 10–116; RESP 18–20; TEMP 97.5–98.1; O2SAT 92–100
[2024-03-13 00:10] LABS: GLUCOMETER DEV NAME(LOC) 5S.1C; GLUCOSE,POINT OF CARE 163 MG/DL (70-110)
[2024-03-13 07:46] LABS: ANION GAP 5 mmol/L (8-16); CALCIUM, TOTAL 9.1 mg/dL (8.8-10.5); CARBON DIOXIDE 32 mmol/L (22-29); CHLORIDE 96 mmol/L (98-107); CREATININE 0.67 mg/dL (0.60-1.30); GLOMERULAR FILTR. RATE CALC > 60 mL/min (>60); GLUCOSE,RANDOM 87 mg/dL (70-110); SODIUM SERUM 133 mmol/L (136-145); UREA NITROGEN, BLOOD 9 mg/dL (7-18); VANCOMYCIN,RANDOM 20.7 mcg/mL (25.0-50.0)
[2024-03-13 07:56] LABS: GLUCOMETER DEV NAME(LOC) 5N.1D; GLUCOSE,POINT OF CARE 98 MG/DL (70-110)
[2024-03-13] MEDS: POTASSIUM CHLORIDE 20 MEQ ER TABLET PO PRN (16:58)
[2024-03-13] MEDS ORDERED: POTASSIUM CHL 10 MEQ/WATER 50 ML IV PRN (17:00)
[2024-03-13 19:21] LABS: GLUCOMETER DEV NAME(LOC) 5N.2C; GLUCOSE,POINT OF CARE 154 MG/DL (70-110)
[2024-03-13 22:06] LABS: GLUCOMETER DEV NAME(LOC) 5S.1C; GLUCOSE,POINT OF CARE 128 MG/DL (70-110)
[2024-03-14] VITALS (7 sets, daily range): BP systolic 119–129; BP diastolic 70–82; PULSE 98–109; RESP 18–20; TEMP 97.6–98.1; O2SAT 90–99
[2024-03-14 07:31] LABS: ANION GAP 6 mmol/L (8-16); CALCIUM, TOTAL 9.1 mg/dL (8.8-10.5); CARBON DIOXIDE 31 mmol/L (22-29); CHLORIDE 96 mmol/L (98-107); CREATININE 0.71 mg/dL (0.60-1.30); GLOMERULAR FILTR. RATE CALC > 60 mL/min (>60); GLUCOSE,RANDOM 102 mg/dL (70-110); POTASSIUM 3.6 mmol/L (3.5-5.1); SODIUM SERUM 133 mmol/L (136-145); UREA NITROGEN, BLOOD 8 mg/dL (7-18)
[2024-03-14] MEDS: VANCOMYCIN 1GM/WATER(PEG/NADA) 200 ML IV SCH (08:45)
[2024-03-14] MEDS ORDERED: SODIUM CHLORIDE 0.9% 250 ML IV ONE (10:04)
[2024-03-14] MEDS ORDERED: EMPA10TA3 PO (10:55)
[2024-03-14] MEDS ORDERED: FLUT1BLS IH (10:55)
[2024-03-14] MEDS ORDERED: CARV3 PO (10:55)
[2024-03-14] MEDS ORDERED: LOSA-417 PO (10:55)
[2024-03-14] MEDS ORDERED: PRED-729 PO (10:55)
[2024-03-14] MEDS ORDERED: ALBU18HF12 IH (10:55)
[2024-03-14] MEDS ORDERED: PRED-554 PO (10:55)
[2024-03-14] MEDS ORDERED: AMOX-457 PO (10:56)
[2024-03-14] MEDS ORDERED: FURO40TA6 PO (11:02)
[2024-03-14 11:31] LABS: GLUCOMETER DEV NAME(LOC) 5N.2C; GLUCOSE,POINT OF CARE 111 MG/DL (70-110)
[2024-03-15 12:05] LABS: GLUCOMETER DEV NAME(LOC) 5N.2C; GLUCOSE,POINT OF CARE 124 MG/DL (70-110)
== END 2024-03-14 17:40 | disposition home or self-care (01) | DRG 720 ==
LOC: EMS 22:29 → EDH 03-09 00:11 → 5S 03-09 03:10
PROVIDERS: ADMIT Internal Medicine; ATTEND Internal Medicine
PROC: 5A09357 Assistance with Respiratory Ventilation, Less than 24 Consecutive Hours, Continuous Positive Airway Pressure (ICD-10-PCS; principal; 2024-03-08)
DX: A41.9 Sepsis, unspecified organism (principal); J96.01 Acute respiratory failure with hypoxia; I50.43 Acute on chronic combined systolic (congestive) and diastolic (congestive) heart failure; E43 Unspecified severe protein-calorie malnutrition; J15.69 Pneumonia due to other Gram-negative bacteria; I42.9 Cardiomyopathy, unspecified; C34.90 Malignant neoplasm of unspecified part of unspecified bronchus or lung; D64.9 Anemia, unspecified; J44.0 Chronic obstructive pulmonary disease with (acute) lower respiratory infection; J44.1 Chronic obstructive pulmonary disease with (acute) exacerbation; G40.909 Epilepsy, unspecified, not intractable, without status epilepticus; Z20.822 Contact with and (suspected) exposure to COVID-19; E78.5 Hyperlipidemia, unspecified; I11.0 Hypertensive heart disease with heart failure; K21.9 Gastro-esophageal reflux disease without esophagitis; F32.A Depression, unspecified; Z68.1 Body mass index [BMI] 19.9 or less, adult; F17.210 Nicotine dependence, cigarettes, uncomplicated; Z16.24 Resistance to multiple antibiotics; Z79.01 Long term (current) use of anticoagulants; Z79.84 Long term (current) use of oral hypoglycemic drugs; Z82.49 Family history of ischemic heart disease and other diseases of the circulatory system; Z83.3 Family history of diabetes mellitus; Z88.1 Allergy status to other antibiotic agents
CPT/HCPCS: 0241U; 71045; 71260; 72193; 74160; 80048; 80053; 80202; 81001; 82550; 82805; 82962; 83605; 83735; 83880; 84132; 84145; 84484; 85025; 85610; 85730; 87040; 87086; 87186; 87804; 93005; 93306; 94640; 94644; 94660; 97163; 97166; 97530; 97535; 99291; G0238; J1171; J1940; J2185; J2405; J2543; J2919; J7050; 36415-L1; 36415-TC; J7613; Z7610

== ENCOUNTER 2024-04-14 12:07 | Inpatient (IN) | payer MEDICARE, OTHER ==
[2024-04-14] VITALS (7 sets, daily range): BP systolic 126–143; BP diastolic 73–86; PULSE 102–126; RESP 17–24; TEMP 98–98.2; O2SAT 92–100
[~2024-04-14] VITALS: Ht 170.2 cm; Wt 52.6 kg
[~2024-04-14 12:07] MED LIST changes: +AMOX-457 PO; +BUDE10.7 IH; +CARV3 PO; +DIPH50CA35 PO; +DORZ10DR10 OU; -DORZ1DRO12 OU; +EMPA10TA3 PO; +FAMO20 PO; +FLUT1BLS IH; +FURO40TA6 PO; -LISI-893 PO; +LOSA-417 PO; +MONT-40 PO; +OXYB5TAB20 PO; +PRED-554 PO; +PRED-729 PO; -VERA120T21 PO; -[UNRECOGNIZED DRUG - CODE] PO
[2024-04-14 13:34] LABS: BASOPHILS % (AUTO) 0.2 % (0.0-2.0); EOSINOPHILS % (AUTO) 0.2 % (1.0-6.0); HEMATOCRIT 38.8 % (36-46); HEMOGLOBIN 12.5 g/dL (12.0-16.0); LYMPHOCYTES # (AUTO) 1.2 K/uL (1.0-4.8); LYMPHOCYTES % (AUTO) 14.2 % (22.0-44.0); MEAN CORPUSCULAR HEMOGLOBIN 23.9 pg (26.0-34.0); MEAN CORPUSCULAR HGB CONC 32.2 G/dL (31.0-37.0); MEAN CORPUSCULAR VOLUME 74 fL (80-100); MONOCYTES # (AUTO) 0.8 K/uL (0.1-1.0); NEUTROPHILS # (AUTO) 6.5 K/uL (1.8-7.7); NEUTROPHILS % (AUTO) 76.4 % (40.0-70.0); PLATELET COUNT (AUTO) 165 K/uL (150-450); RED BLOOD CELL COUNT(AUTO) 5.23 MIL/uL (4.00-5.20); RED CELL DISTRIBUTION WIDTH 16.5 % (11.5-14.5); WHITE BLOOD COUNT (AUTO) 8.4 K/uL (4.5-11.0)
[2024-04-14 13:44] LABS: ANION GAP 5 mmol/L (8-16); CALCIUM, TOTAL 8.8 mg/dL (8.8-10.5); CARBON DIOXIDE 28 mmol/L (22-29); CHLORIDE 97 mmol/L (98-107); CREATININE 0.71 mg/dL (0.60-1.30); GLOMERULAR FILTR. RATE CALC > 60 mL/min (>60); GLUCOSE,RANDOM 92 mg/dL (70-110); SODIUM SERUM 130 mmol/L (136-145); UREA NITROGEN, BLOOD 7 mg/dL (7-18)
[2024-04-14 13:48] LABS: RBC MORPHOLOGY COMMENT ABNORMAL RBC MORPH
[2024-04-14 13:49] LABS: CREATINE KINASE, TOTAL ONLY 62 U/L (26-192)
[2024-04-14 13:53] LABS: TROPONIN I-HIGH SENSITIVITY 149 ng/L (<51)
[2024-04-14 13:54] LABS: B-TYPE NATRIURETIC PEPTIDE 87 pg/mL (0-100)
[2024-04-14 14:59] LABS: LACTIC ACID 1.3 mmol/L (0.4-2.0)
[2024-04-14 15:26] LABS: COVID AG,FIA SOURCE NASAL SWAB
[2024-04-14] MEDS: BENZONATATE 100 MG CAPSULE PO SCH (16:21)
[2024-04-14] MEDS: PIPERACILLIN/TAZO 3.375 GM/D5W 50 ML IV ONE (16:21)
[2024-04-14 16:25] LABS: SARS-COV2 (COVID) ANTIGEN,FIA Negative (Negative)
[2024-04-14] MEDS: ALBUTEROL SULFATE 2.5 MG/0.5 ML NEB SOLUTION NEB PRN (16:26)
[2024-04-14] MEDS: IPRATROPIUM BROMIDE 0.5 MG/2.5 ML NEB SOLUTION NEB PRN (16:26)
[2024-04-14 16:27] LABS: INFLUENZA TYPE A NEGATIVE FOR TYPE A (NEGATIVE); INFLUENZA TYPE B NEGATIVE FOR TYPE B (NEGATIVE)
[2024-04-14 17:03] LABS: TROPONIN I-HIGH SENSITIVITY 115 ng/L (<51)
[2024-04-14] MEDS ORDERED: SODIUM CHLORIDE 0.9% 250 ML IV ONE (17:19)
[2024-04-14] MEDS: VANCOMYCIN 1.25 GM/WATER(PEG) 250 ML IV ONE (17:26)
[2024-04-14] MEDS: MethylPREDNISolone SOD SUCC 125 MG/2 ML VIAL IVP SCH (17:29)
[2024-04-14] MEDS: IPRATROPIUM BROMIDE 0.5 MG/2.5 ML NEB SOLUTION NEB SCH (20:01)
[2024-04-14] MEDS: ALBUTEROL SULFATE 2.5 MG/0.5 ML NEB SOLUTION NEB SCH (20:01)
[2024-04-14] MEDS: CARVEDILOL 3.125 MG TABLET PO SCH (21:31)
[2024-04-14] MEDS: APIXABAN 5 MG TABLET PO SCH (21:31)
[2024-04-14] MEDS: GuaiFENesin SR 600 MG ER TABLET PO SCH (21:31)
[2024-04-15] VITALS (14 sets, daily range): BP systolic 139–181; BP diastolic 72–88; PULSE 81–114; RESP 16–20; TEMP 97.1–98.3; O2SAT 95–100
[2024-04-15] MEDS: PIPERACILLIN/TAZO 3.375 GM/D5W 50 ML IV SCH (00:01)
[2024-04-15] MEDS: ACETAMINOPHEN 500 MG TABLET PO PRN (00:18)
[2024-04-15 07:02] LABS: ANION GAP 9 mmol/L (8-16); CALCIUM, TOTAL 8.7 mg/dL (8.8-10.5); CARBON DIOXIDE 25 mmol/L (22-29); CHLORIDE 96 mmol/L (98-107); CREATININE 0.69 mg/dL (0.60-1.30); GLOMERULAR FILTR. RATE CALC > 60 mL/min (>60); GLUCOSE,RANDOM 139 mg/dL (70-110); POTASSIUM 4.5 mmol/L (3.5-5.1); SODIUM SERUM 130 mmol/L (136-145); UREA NITROGEN, BLOOD 10 mg/dL (7-18)
[2024-04-15] MEDS: EMPAGLIFLOZIN 10 MG TABLET PO SCH (07:47)
[2024-04-15] MEDS: FUROSEMIDE 40 MG TABLET PO SCH (07:47)
[2024-04-15] MEDS: LOSARTAN POTASSIUM 25 MG TABLET PO SCH (07:47)
[2024-04-15] MEDS: OXYBUTYNIN CHLORIDE 5 MG TABLET PO SCH (07:48)
[2024-04-15] MEDS: MONTELUKAST SODIUM 10 MG TABLET PO SCH (07:48)
[2024-04-15] MEDS: FLUTICASONE/VILANTEROL 200-25 MCG/INH INHALER [14] IH SCH (07:49)
[2024-04-15] MEDS: VANCOMYCIN 750 MG/WATER(PEG) 150 ML IV SCH (10:04)
[2024-04-15] MEDS ORDERED: *NON-FORMULARY MED [ENTER DRUG, DOSE, FREQ IN COMMENTS] CLINICAL ONE (14:15)
[2024-04-15] MEDS: HYDROCODONE/ACETAMINOPHEN 5-325 MG TABLET PO PRN (14:56)
[2024-04-15] MEDS: *NON-FORMULARY MED [ENTER DRUG, DOSE, FREQ IN COMMENTS] CLINICAL ONE (15:11)
[2024-04-15] MEDS: NYSTATIN 500,000 UNITS/5 ML SUSPENSION UDCUP PO SCH (16:12)
[2024-04-15] MEDS: BRIMONIDINE TARTRATE 0.2% 5 ML OPHTHALMIC SOLUTION OU SCH (21:00)
[2024-04-15] MEDS: LevETIRAcetam 500 MG TABLET PO SCH (21:01)
[2024-04-16] VITALS (16 sets, daily range): BP systolic 119–152; BP diastolic 76–92; PULSE 85–100; RESP 17–20; TEMP 97.3–98.2; O2SAT 95–100
[2024-04-16 06:56] LABS: ANION GAP 8 mmol/L (8-16); CALCIUM, TOTAL 8.7 mg/dL (8.8-10.5); CARBON DIOXIDE 26 mmol/L (22-29); CHLORIDE 98 mmol/L (98-107); CREATININE 0.81 mg/dL (0.60-1.30); GLOMERULAR FILTR. RATE CALC > 60 mL/min (>60); GLUCOSE,RANDOM 173 mg/dL (70-110); POTASSIUM 3.6 mmol/L (3.5-5.1); SODIUM SERUM 132 mmol/L (136-145); UREA NITROGEN, BLOOD 11 mg/dL (7-18)
[2024-04-16 07:38] LABS: VANCOMYCIN,RANDOM 14.9 mcg/mL (25.0-50.0)
[2024-04-16] MEDS: TAGRISSO 80 MG TABLET PO SCH (08:38)
[2024-04-16] MEDS: VANCOMYCIN 1GM/WATER(PEG/NADA) 200 ML IV SCH (21:05)
[2024-04-17] VITALS (15 sets, daily range): BP systolic 147–179; BP diastolic 80–99; PULSE 84–101; RESP 16–20; TEMP 97.7–98.1; O2SAT 90–100
[2024-04-17 06:48] LABS: ANION GAP 7 mmol/L (8-16); CALCIUM, TOTAL 9.1 mg/dL (8.8-10.5); CARBON DIOXIDE 30 mmol/L (22-29); CHLORIDE 95 mmol/L (98-107); CREATININE 0.93 mg/dL (0.60-1.30); GLOMERULAR FILTR. RATE CALC > 60 mL/min (>60); GLUCOSE,RANDOM 199 mg/dL (70-110); POTASSIUM 3.4 mmol/L (3.5-5.1); SODIUM SERUM 131 mmol/L (136-145); UREA NITROGEN, BLOOD 13 mg/dL (7-18)
[2024-04-17] MEDS ORDERED: POTASSIUM CHL 10 MEQ/WATER 50 ML IV PRN (13:00)
[2024-04-17] MEDS: POTASSIUM CHLORIDE 20 MEQ ER TABLET PO PRN (13:44)
[2024-04-17] MEDS ORDERED: 0.9% SODIUM CHLORIDE 5 ML NEB SOLUTION NEB ONE (17:12)
[2024-04-17] MEDS ORDERED: ALBUTEROL SULFATE 2.5 MG/0.5 ML NEB SOLUTION NEB PRN (18:45)
[2024-04-17] MEDS ORDERED: IPRATROPIUM BROMIDE 0.5 MG/2.5 ML NEB SOLUTION NEB PRN (18:45)
[2024-04-17] MEDS: ALBUTEROL SULFATE 3 MG IH PRN (21:47)
[2024-04-17] MEDS: IPRATROPIUM BROMIDE IH PRN (21:47)
[2024-04-18] VITALS (10 sets, daily range): BP systolic 134–179; BP diastolic 72–96; PULSE 84–100; RESP 18–20; TEMP 97.8–98.4; O2SAT 95–100
[2024-04-18 06:51] LABS: ANION GAP 6 mmol/L (8-16); CALCIUM, TOTAL 9.2 mg/dL (8.8-10.5); CARBON DIOXIDE 30 mmol/L (22-29); CHLORIDE 96 mmol/L (98-107); CREATININE 0.67 mg/dL (0.60-1.30); GLOMERULAR FILTR. RATE CALC > 60 mL/min (>60); GLUCOSE,RANDOM 121 mg/dL (70-110); POTASSIUM 4.2 mmol/L (3.5-5.1); SODIUM SERUM 132 mmol/L (136-145); UREA NITROGEN, BLOOD 13 mg/dL (7-18)
[2024-04-18] MEDS: AmLODIPine BESYLATE 5 MG TABLET PO SCH (11:58)
[2024-04-18] MEDS ORDERED: SODIUM CHLORIDE 0.9% 250 ML IV ONE (18:11)
[2024-04-19] VITALS (8 sets, daily range): BP systolic 120–150; BP diastolic 68–98; PULSE 87–95; RESP 16–18; TEMP 98–98.7; O2SAT 97–100
[2024-04-19 07:02] LABS: ANION GAP 5 mmol/L (8-16); CALCIUM, TOTAL 9.4 mg/dL (8.8-10.5); CARBON DIOXIDE 31 mmol/L (22-29); CHLORIDE 94 mmol/L (98-107); CREATININE 0.85 mg/dL (0.60-1.30); GLOMERULAR FILTR. RATE CALC > 60 mL/min (>60); GLUCOSE,RANDOM 139 mg/dL (70-110); POTASSIUM 3.4 mmol/L (3.5-5.1); SODIUM SERUM 130 mmol/L (136-145); UREA NITROGEN, BLOOD 18 mg/dL (7-18); VANCOMYCIN,RANDOM 24.1 mcg/mL (25.0-50.0)
[2024-04-19] MEDS ORDERED: IOHEXOL 350 MG/ML 100 ML VIAL ONE (07:37)
[2024-04-19] MEDS ORDERED: SODIUM CHLORIDE 0.9% 100 ML ONE (07:37)
[2024-04-19] MEDS: ATORVASTATIN CALCIUM 40 MG TABLET PO SCH (08:45)
[2024-04-19] MEDS: VANCOMYCIN 750 MG/WATER(PEG) 150 ML IV SCH (08:47)
[2024-04-19] MEDS ORDERED: HEPARIN SODIUM,PORCINE 5,000 UNITS/ML VIAL IVP PRN (16:45)
[2024-04-19] MEDS: HEPARIN SODIUM 25000 UNITS/D5W 250 ML IV PRN (17:07)
[2024-04-19 18:04] LABS: BASOPHILS % (AUTO) 0.2 % (0.0-2.0); EOSINOPHILS % (AUTO) 0.1 % (1.0-6.0); HEMATOCRIT 39.4 % (36-46); LYMPHOCYTES # (AUTO) 0.2 K/uL (1.0-4.8); LYMPHOCYTES % (AUTO) 2.5 % (22.0-44.0); MEAN CORPUSCULAR HEMOGLOBIN 24.3 pg (26.0-34.0); MEAN CORPUSCULAR HGB CONC 33.1 G/dL (31.0-37.0); MEAN CORPUSCULAR VOLUME 74 fL (80-100); MONOCYTES # (AUTO) 0.8 K/uL (0.1-1.0); MONOCYTES % (AUTO) 8.5 % (2.0-9.0); NEUTROPHILS # (AUTO) 8.6 K/uL (1.8-7.7); PLATELET COUNT (AUTO) 176 K/uL (150-450); RED BLOOD CELL COUNT(AUTO) 5.36 MIL/uL (4.00-5.20); RED CELL DISTRIBUTION WIDTH 16.3 % (11.5-14.5); WHITE BLOOD COUNT (AUTO) 9.7 K/uL (4.5-11.0)
[2024-04-19 18:05] LABS: NEUTROPHILS % (AUTO) 88.7 % (40.0-70.0)
[2024-04-19 18:15] LABS: PROTHROMBIN TIME 11.2 SEC (9.4-11.6)
[2024-04-19 18:22] LABS: RBC MORPHOLOGY COMMENT ABNORMAL RBC MORPH
[2024-04-19] MEDS: HEPARIN SODIUM,PORCINE 5,000 UNITS/ML VIAL IVP PRN (23:22)
[2024-04-20 04:11] VITALS: PULSE 90; PULSE 99; RESP 18; O2SAT 100; O2SAT 95; O2SAT 97
[2024-04-20 04:15] VITALS: BP 142/86; PULSE 83; RESP 18; TEMP 98.6; O2SAT 100
[2024-04-20 07:42] LABS: ANION GAP 7 mmol/L (8-16); CALCIUM, TOTAL 8.8 mg/dL (8.8-10.5); CARBON DIOXIDE 29 mmol/L (22-29); CHLORIDE 93 mmol/L (98-107); GLOMERULAR FILTR. RATE CALC > 60 mL/min (>60); GLUCOSE,RANDOM 200 mg/dL (70-110); POTASSIUM 3.3 mmol/L (3.5-5.1); SODIUM SERUM 129 mmol/L (136-145); UREA NITROGEN, BLOOD 20 mg/dL (7-18)
[2024-04-20] MEDS ORDERED: POTASSIUM CHL 10 MEQ/WATER 50 ML IV PRN (07:45)
[2024-04-20 07:59] LABS: BASOPHILS % (AUTO) 0.1 % (0.0-2.0); EOSINOPHILS % (AUTO) 0 % (1.0-6.0); HEMATOCRIT 37.4 % (36-46); HEMOGLOBIN 12.2 g/dL (12.0-16.0); LYMPHOCYTES # (AUTO) 0.2 K/uL (1.0-4.8); LYMPHOCYTES % (AUTO) 1.8 % (22.0-44.0); MEAN CORPUSCULAR HEMOGLOBIN 24.2 pg (26.0-34.0); MEAN CORPUSCULAR HGB CONC 32.6 G/dL (31.0-37.0); MEAN CORPUSCULAR VOLUME 74 fL (80-100); MONOCYTES # (AUTO) 0.7 K/uL (0.1-1.0); MONOCYTES % (AUTO) 7.5 % (2.0-9.0); NEUTROPHILS # (AUTO) 8.3 K/uL (1.8-7.7); PLATELET COUNT (AUTO) 162 K/uL (150-450); RED BLOOD CELL COUNT(AUTO) 5.02 MIL/uL (4.00-5.20); RED CELL DISTRIBUTION WIDTH 16.7 % (11.5-14.5); WHITE BLOOD COUNT (AUTO) 9.2 K/uL (4.5-11.0)
[2024-04-20 08:02] LABS: NEUTROPHILS % (AUTO) 90.6 % (40.0-70.0)
[2024-04-20 08:06] VITALS: BP 146/85; PULSE 84; RESP 20; TEMP 98.5; O2SAT 100
[2024-04-20] MEDS: POTASSIUM CHLORIDE 20 MEQ ER TABLET PO PRN (09:12)
[2024-04-20] MEDS: MethylPREDNISolone SOD SUCC 40 MG/ML VIAL IVP SCH (11:47)
[2024-04-20 19:20] VITALS: PULSE 82; RESP 20; O2SAT 99
[2024-04-20 19:30] VITALS: PULSE 86; RESP 20; O2SAT 99
[2024-04-20 20:13] VITALS: BP 141/85; PULSE 84; RESP 18; TEMP 97.9; O2SAT 98
[2024-04-21] VITALS (15 sets, daily range): BP systolic 122–179; BP diastolic 77–93; PULSE 79–92; RESP 16–20; TEMP 97.7–98.5; O2SAT 94–100
[2024-04-21 07:14] LABS: BASOPHILS % (AUTO) 0.5 % (0.0-2.0); EOSINOPHILS % (AUTO) 0 % (1.0-6.0); HEMATOCRIT 37.3 % (36-46); HEMOGLOBIN 12.1 g/dL (12.0-16.0); LYMPHOCYTES # (AUTO) 0.2 K/uL (1.0-4.8); LYMPHOCYTES % (AUTO) 1.9 % (22.0-44.0); MEAN CORPUSCULAR HGB CONC 32.6 G/dL (31.0-37.0); MEAN CORPUSCULAR VOLUME 74 fL (80-100); MONOCYTES # (AUTO) 0.7 K/uL (0.1-1.0); NEUTROPHILS # (AUTO) 10.5 K/uL (1.8-7.7); PLATELET COUNT (AUTO) 147 K/uL (150-450); RED BLOOD CELL COUNT(AUTO) 5.06 MIL/uL (4.00-5.20); RED CELL DISTRIBUTION WIDTH 16.4 % (11.5-14.5); WHITE BLOOD COUNT (AUTO) 11.5 K/uL (4.5-11.0)
[2024-04-21 07:25] LABS: NEUTROPHILS % (AUTO) 91.6 % (40.0-70.0)
[2024-04-21 07:26] LABS: RBC MORPHOLOGY COMMENT ABNORMAL RBC MORPH
[2024-04-21 07:52] LABS: ANION GAP 2 mmol/L (8-16); CALCIUM, TOTAL 9.2 mg/dL (8.8-10.5); CARBON DIOXIDE 31 mmol/L (22-29); CHLORIDE 94 mmol/L (98-107); CREATININE 0.88 mg/dL (0.60-1.30); GLOMERULAR FILTR. RATE CALC > 60 mL/min (>60); GLUCOSE,RANDOM 131 mg/dL (70-110); POTASSIUM 3.8 mmol/L (3.5-5.1); SODIUM SERUM 127 mmol/L (136-145); UREA NITROGEN, BLOOD 24 mg/dL (7-18)
[2024-04-21] MEDS ORDERED: SODIUM CHLORIDE 0.9% 500 ML IV ONE (09:23)
[2024-04-21] MEDS ORDERED: SODIUM BICARBONATE 50 MEQ/50 ML VIAL ONE (15:06)
[2024-04-21] MEDS ORDERED: IODIXANOL 320 MG/ML 100 ML VIAL ONE ×3 (15:06→15:47)
[2024-04-21] MEDS ORDERED: LIDOCAINE/PF 1% 30 ML VIAL ONE (15:06)
[2024-04-21] MEDS ORDERED: IODIXANOL 320 MG/ML 50 ML VIAL ONE (15:06)
[2024-04-21] MEDS ORDERED: HEPARIN SODIUM 1000 UNITS/NS 500 ML ONE (15:08)
[2024-04-21] MEDS ORDERED: MIDAZOLAM HCL 2 MG/2 ML VIAL ONE (15:08)
[2024-04-21] MEDS ORDERED: FentaNYL CITRATE PF 100 MCG/2 ML VIAL ONE (15:08)
[2024-04-21] MEDS: MIDAZOLAM HCL 2 MG/2 ML VIAL IVP ONE (15:58)
[2024-04-21] MEDS: FentaNYL CITRATE PF 100 MCG/2 ML VIAL IVP ONE (15:58)
[2024-04-21] MEDS: IODIXANOL 320 MG/ML 100 ML VIAL IARTER ONE ×3 (16:01→16:41)
[2024-04-21] MEDS: LIDOCAINE 1% 30 ML/SOD BICARB 8.4% 4 ML SQ ONE (16:02)
[2024-04-21] MEDS: HEPARIN SODIUM 1000 UNITS/NS 1,000 ML IARTER ONE (16:05)
[2024-04-21] MEDS: HEPARIN SODIUM,PORCINE 1,000 UNITS/ML 10 ML VIAL IVP ONE (16:05)
[2024-04-21] MEDS ORDERED: CLOPIDOGREL BISULFATE 300 MG TABLET ONE (16:25)
[2024-04-21] MEDS ORDERED: ASPIRIN 325 MG TABLET ONE (16:25)
[2024-04-21] MEDS: ASPIRIN 325 MG TABLET PO ONE (16:41)
[2024-04-21] MEDS: CLOPIDOGREL BISULFATE 300 MG TABLET PO ONE (16:42)
[2024-04-21] MEDS: IODIXANOL 320 MG/ML 50 ML VIAL IARTER ONE (16:42)
[2024-04-21] MEDS: SODIUM CHLORIDE 0.9% 1,000 ML IV ONE (18:12)
[2024-04-21] MEDS ORDERED: APIXABAN 5 MG TABLET PO SCH (21:00)
[2024-04-21] MEDS: APIXABAN 5 MG TABLET PO SCH (21:40)
[2024-04-22 06:08] VITALS: BP 165/78; PULSE 82; RESP 20; TEMP 97.9; O2SAT 97
[2024-04-22 07:15] LABS: ANION GAP 6 mmol/L (8-16); CALCIUM, TOTAL 9.2 mg/dL (8.8-10.5); CARBON DIOXIDE 29 mmol/L (22-29); CHLORIDE 95 mmol/L (98-107); CREATININE 0.76 mg/dL (0.60-1.30); GLOMERULAR FILTR. RATE CALC > 60 mL/min (>60); GLUCOSE,RANDOM 140 mg/dL (70-110); POTASSIUM 3.2 mmol/L (3.5-5.1); SODIUM SERUM 130 mmol/L (136-145); UREA NITROGEN, BLOOD 22 mg/dL (7-18); VANCOMYCIN,RANDOM 22.3 mcg/mL (25.0-50.0)
[2024-04-22 07:31] LABS: HEMATOCRIT 37.3 % (36-46); HEMOGLOBIN 12.1 g/dL (12.0-16.0); MEAN CORPUSCULAR HGB CONC 32.4 G/dL (31.0-37.0); MEAN CORPUSCULAR VOLUME 74 fL (80-100); PLATELET COUNT (AUTO) 136 K/uL (150-450); RED BLOOD CELL COUNT(AUTO) 5.04 MIL/uL (4.00-5.20); RED CELL DISTRIBUTION WIDTH 16.2 % (11.5-14.5); WHITE BLOOD COUNT (AUTO) 11.6 K/uL (4.5-11.0)
[2024-04-22 08:13] VITALS: BP 143/62; PULSE 70; RESP 18; TEMP 98.7; O2SAT 96
[2024-04-22 08:26] LABS: BAND NEUTROPHILS % (MANUAL) 9 % (0-5); LYMPHOCYTES % (MANUAL) 7 % (22-44); MONOCYTES % (MANUAL) 5 % (2-9); SEGMENTED NEUTROPHILS % 79 % (40-70); TOTAL CELLS COUNTED 100
[2024-04-22 08:27] LABS: PLATELET MORPHOLOGY COMMENT GIANT PLTS PRESENT; RBC MORPHOLOGY COMMENT ABNORMAL RBC MORPH
[2024-04-22] MEDS ORDERED: CLOPIDOGREL BISULFATE 75 MG TABLET PO SCH (09:00)
[2024-04-22] MEDS ORDERED: AMLO-257 PO (10:08)
[2024-04-22] MEDS ORDERED: CLOP75TA60 PO (10:08)
[2024-04-22] MEDS ORDERED: NYST100033 PO (10:08)
[2024-04-22] MEDS ORDERED: ATOR40TA71 PO (10:08)
[2024-04-22] MEDS ORDERED: APIX5TAB PO (10:08)
[2024-04-22] MEDS ORDERED: AMOX-457 PO (10:08)
[2024-04-22] MEDS ORDERED: PRED-729 PO (10:08)
[2024-04-22] MEDS ORDERED: CARV6 PO (10:08)
[2024-04-22] MEDS: CARVEDILOL 6.25 MG TABLET PO SCH (11:20)
[2024-04-22] MEDS: CLOPIDOGREL BISULFATE 75 MG TABLET PO SCH (11:23)
[2024-04-22 14:22] VITALS: PULSE 75; RESP 20; O2SAT 97
[2024-04-22 14:37] VITALS: PULSE 71; RESP 20; O2SAT 96
[2024-04-22 16:03] VITALS: BP 126/75; PULSE 87; RESP 18; TEMP 98.4; O2SAT 97
[2024-04-22] MEDS ORDERED: PERCT PO (17:41)
== END 2024-04-22 17:35 | disposition home or self-care (01) | DRG 182 ==
LOC: EMS 12:07 → EDH 15:32 → 5S 16:45 → 6S 04-18 15:50
PROVIDERS: ADMIT Internal Medicine; ATTEND Internal Medicine
PROC: 047J34Z Dilation of Left External Iliac Artery with Drug-eluting Intraluminal Device, Percutaneous Approach (ICD-10-PCS; principal; 2024-04-21)
PROC: B41D1ZZ Fluoroscopy of Aorta and Bilateral Lower Extremity Arteries using Low Osmolar Contrast (ICD-10-PCS; 2024-04-21)
DX: I74.5 Embolism and thrombosis of iliac artery (principal); J96.01 Acute respiratory failure with hypoxia; J15.69 Pneumonia due to other Gram-negative bacteria; E43 Unspecified severe protein-calorie malnutrition; B37.0 Candidal stomatitis; D68.69 Other thrombophilia; I73.9 Peripheral vascular disease, unspecified; Z68.1 Body mass index [BMI] 19.9 or less, adult; I42.9 Cardiomyopathy, unspecified; J44.0 Chronic obstructive pulmonary disease with (acute) lower respiratory infection; D64.9 Anemia, unspecified; E78.5 Hyperlipidemia, unspecified; G40.909 Epilepsy, unspecified, not intractable, without status epilepticus; C34.91 Malignant neoplasm of unspecified part of right bronchus or lung; I10 Essential (primary) hypertension; E87.1 Hypo-osmolality and hyponatremia; E87.6 Hypokalemia; F32.A Depression, unspecified; K21.9 Gastro-esophageal reflux disease without esophagitis; K59.00 Constipation, unspecified; F17.210 Nicotine dependence, cigarettes, uncomplicated; R23.0 Cyanosis; R73.9 Hyperglycemia, unspecified; Z86.718 Personal history of other venous thrombosis and embolism; Z88.1 Allergy status to other antibiotic agents; Z79.899 Other long term (current) drug therapy; Z87.01 Personal history of pneumonia (recurrent); Z79.01 Long term (current) use of anticoagulants; Z79.02 Long term (current) use of antithrombotics/antiplatelets; Z79.51 Long term (current) use of inhaled steroids; Z79.84 Long term (current) use of oral hypoglycemic drugs
CPT/HCPCS: 36200; 71045; 75630; 75635; 75716; 80048; 80202; 82271; 82550; 83605; 83735; 83880; 84132; 84484; 85025; 85610; 85730; 87040; 87804; 93005; 93925; 93970; 94640; 97162; 99285; J1644; J2250; J2543; J2919; J3010; J3490; J7030; J7040; J7050; Q9967; 36415-L1; 36415-TC; J7613